=== PATIENT | female | born 1980 | race Two or more races ===

== ENCOUNTER 2025-01-29 22:51 | Emergency (ER) | payer OTHER ==
[~2025-01-29] VITALS: Ht 157.5 cm; Wt 96.2 kg
[2025-01-30 00:10] VITALS: BP 109/75; O2SAT 95
[2025-01-30 04:45] LABS: BASO % 0.6 % (0.1-1.2); EOS # 0.01 (0.04-0.54); EOS % 0.2 % (0.7-7.0); LYMPH # 0.50 (1.18-3.74); LYMPH % 7.7 % (19.3-53.1); MEAN PLATELET VOLUME 8.90 fl (9.4-12.4); MONO # 0.69 (0.24-0.82); MONO % 10.6 % (4.7-12.5); NEUT # 5.24 (1.56-6.13); NEUT % 80.4 % (34.0-71.1); RED CELL DISTRIBUTION WIDTH 12.5 % (11.6-14.4)
[2025-01-30 05:08] LABS: ALT/SGPT 25.0 U/L (12-78); AST/SGOT 16.0 U/L (15-37); BILIRUBIN TOTAL 0.49 mg/dL (0.3-1.2); BUN CREA RATIO 10.0 (7.0-25.0); CREATININE SERUM 0.94 mg/dL (0.55-1.02); GFR 65.3; GLOBULINA 4.3 G/DL (2.4-3.5); GLUCOSE FASTING 115.0 mg/dL (65-100); OSMOLALITY SERUM 279.0 MOSM/KG (275-295)
[2025-01-30 07:01] LABS: URINE APPEARANCE Cloudy; URINE BILIRRUBIN Negative (NEGATIVE); URINE COLOR Yellow; URINE GLUCOSE Negative (NEGATIVE); URINE KETONE Trace (NEGATIVE); URINE LEUKOCYTE Trace; URINE NITRATE Negative; URINE PROTEIN 30 (NEGATIVE); URINE UROBILINOGEN 1.0 E.U./dl
[2025-01-30 07:06] LABS: COVID-19 AG NEGATIVE (NEGATIVE)
[2025-01-30 07:11] LABS: URINE EPITHELIAL CELLS 189.6 uL (0.0-38.8); URINE RBC 25.8 uL (0.0-20.8); URINE WBC 48.1 uL (0.0-23.2)
[2025-01-30 07:37] LABS: URINE CAST 0.14 uL (0.0-1.40)
[2025-01-30 07:38] LABS: URINE BLOOD TRACES
== END 2025-01-30 14:13 | disposition home or self-care (01) ==
LOC: ER 22:52
PROVIDERS: Preventive Medicine Public Health & General Preventive Medicine
DX: B34.8 Other viral infections of unspecified site (principal)